=== PATIENT | male | born 1975 | race Native Hawaiian/Other Pacific Islander ===

== ENCOUNTER → 2024-10-21 | Outpatient (CLI) | payer OTHER, SELFPAY ==
[2024-10-21 10:18] LABS: Basophils # (Auto) 0.1 Thou/mm3 (0.0-0.2); Basophils % (Auto) 1 % (0-2.5); Eosinophils # (Auto) 0.6 Thou/mm3 (0.0-0.5); Eosinophils % (Auto) 8 % (0-10); Hematocrit 45.6 % (41.0-53.0); Hemoglobin 15.5 g/dL (13.5-16.0); Immature Granulocytes % (Auto) 0 % (0-0); Immature Granulocytes Auto 0.02 Thou/mm3 (0.00-0.00); Lymphocytes # (Auto) 2.6 Thou/mm3 (1.0-4.8); Lymphocytes % (Auto) 33 % (10-50); Mean Corpuscular Hemoglobin 31.1 pg (25.0-35.0); Mean Corpuscular Volume 92 fL (80-100); Monocytes # (Auto) 0.6 Thou/mm3 (0.0-0.8); Monocytes % (Auto) 7 % (0-12); Neutrophils % (Auto) 50 % (37-80); Nucleated Red Blood Cell % 0 /100 WBC (0); Platelet Count 268 Thou/mm3 (140-440); RDW Standard Deviation 40.1 fL (35.1-43.9); Red Blood Count 4.98 Miln/mm3 (4.50-5.90); White Blood Count 7.9 Thou/mm3 (3.8-10.6)
[2024-10-21 10:38] LABS: Alanine Aminotransferase 31 U/L (10-49); Albumin, Serum 4.8 gm/dL (3.5-5.0); Albumin/Globulin Ratio 1.5 (1.2-2.2); Alkaline Phosphatase 76 U/L (46-116); Anion Gap 9 (7-16); BUN/Creatinine Ratio 16 Ratio (12-20); Blood Urea Nitrogen 16 mg/dL (9-23); Calcium 9.4 mg/dL (8.3-10.6); Calcium (Corrected) 9.4 mg/dL (8.5-10.1); Carbon Dioxide 28.4 mMol/L (20.0-31.0); Cardiac Risk Estimate 2.6 RATIO (4.0-6.7); Chloride 105 mMol/L (98-107); Cholesterol 127 mg/dL (132-200); Globulin 3.1 gm/dL (2.3-3.5); Glucose 99 mg/dL (74-106); HDL Cholesterol 48 mg/dL (40-60); LDL Cholesterol,Calculated 61 mg/dL (0-130); Osmolality,Calculated 284 (275-295); Potassium 4.1 mMol/L (3.4-5.1); Sodium 142 mMol/L (136-145); Thyroid Stimulating Hormone 1.98 uIU/mL (0.55-4.78); Total Protein 7.9 gm/dL (5.7-8.2); Triglycerides 90 mg/dL (30-150); eGFR > 60 See Note
[2024-10-21 10:54] LABS: Glucose Estimated Average 108 mg/dL (80-131); Hemoglobin A1C 5.4 % Hgb (4.8-6.0)
== END | disposition home or self-care (01) ==
LOC: COPL 09:08
PROVIDERS: PCP Internal Medicine
DX: Z00.01 Encounter for general adult medical examination with abnormal findings (principal); E78.00 Pure hypercholesterolemia, unspecified; I10 Essential (primary) hypertension; Z13.6 Encounter for screening for cardiovascular disorders; Z79.899 Other long term (current) drug therapy
CPT/HCPCS: 36415; 80053; 80061; 83036; 84443; 85025